=== PATIENT | male | born 1980 | race Hispanic/Latino ===

== ENCOUNTER 2019-03-14 18:24 | Observation (INO) | payer OTHER ==
[~2019-03-14] VITALS: Ht 170.2 cm; Wt 81.0 kg
[~2019-03-14 18:24] MED LIST: ACIPHEX20 MG PO; AVIDOXY100 MG OR; BROVANA15 MCG IN; FLOVENT DISK100 MCG IN; FLOVENT HFA44 MCG IN; FLUOXETINE20 MG PO; HYDROXYZ HCL10 MG OR; IPRATROPIUM BROMIDE/ IN; METOCLOPRAMIDE H5 MG PO; NO CURRENT MEDS; OMEPRAZOLE20 M1 PO; OMEPRAZOLE20 MG PO; PRILOSEC10 MG PO; PRILOSEC20 MG/CAP PO; PRILOSEC40 MG PO; PROAIR HFA IN; RANITIDINE150 M1 OR; VENTOLIN HF1 IN; VENTOLIN HFA IN
[2019-03-14] MEDS ORDERED: LIPITOR10 M1 PO (18:55)
[2019-03-14 19:12] LABS: HEMATOCRIT 43.8 % (39.0-50.0); HEMOGLOBIN 14.8 g/dl (14.0-18.0); IMMATURE GRANULOCYTES 0.3 % (0.0-5.0); MEAN CELL VOLUME 87.6 fL CALC (80.0-100.0); MEAN CORPUSCULAR HGB 29.6 pG CALC (26.0-32.0); MEAN CORPUSCULAR HGB CONC 33.8 g/L CALC (32.0-36.0); NEUT# 4.36 thou/uL (1.82-7.42); RED CELL DISTRI WIDTH 12.9 % (11.5-15.5)
[2019-03-14 19:17] LABS: ALKALINE PHOSPHATASE 94 u/l (38-126); ANION GAP 17 (6-22 (CALC)); BILIRUBIN, TOTAL 0.6 mg/dL (0.0-1.4); BUN 18 mg/dL (9-20); BUN/CREATININE RATIO 20 (12-20 (CALC)); CARBON DIOXIDE 24 mmol/l (22-30); CHLORIDE 105 mmol/l (95-108); CREATININE 0.9 mg/dL (0.7-1.3); GFR > 60 ML/MIN (>=60 (CALC)); GFR FOR AFR.AMER. > 60 ML/MIN (>=60 (CALC)); LIPASE 66 u/l (23-300); POTASSIUM 4.2 mmol/l (3.5-5.1); SGOT/AST 23 u/l (17-59); SODIUM 142 mmol/l (137-146); TOTAL PROTEIN 8.1 g/dL (6.3-8.2)
[2019-03-14 19:30] LABS: MYOGLOBIN 15 ng/mL (0 - 121)
[2019-03-14 20:54] LABS: URINE BILIRUBIN - DIPSTICK NEGATIVE (NEGATIVE); URINE BLOOD DIPSTICK NEGATIVE (NEGATIVE); URINE COLOR YELLOW; URINE GLUCOSE - DIPSTICK NEGATIVE (NEGATIVE); URINE KETONE NEGATIVE (NEGATIVE); URINE LEUK ESTERASE NEGATIVE (NEGATIVE); URINE NITRITE - DIPSTICK NEGATIVE (Negative); URINE PH 6.5 (4.5-8.0); URINE PROTEIN - DIPSTICK NEGATIVE (NEG-TRACE); URINE SPECIFIC GRAVITY 1.015
[2019-03-14 21:28] VITALS: BP 133/76
[2019-03-15 04:22] VITALS: BP 114/61
[2019-03-15 08:06] VITALS: BP 125/80
[2019-03-15 10:04] LABS: CHOLESTEROL HDL RATIO 3.8 (<4.4 (CALC))
[2019-03-15 11:04] VITALS: BP 104/60
== END 2019-03-15 13:25 | disposition home or self-care (01) | DRG 313 ==
LOC: ED 18:24 → ED-I 20:13 → MS2 20:41 → ED 20:41 → MS2 03-15 13:25
PROVIDERS: Nurse Practitioner Family; ADMIT Internal Medicine; ATTEND Internal Medicine
DX: R07.9 Chest pain, unspecified (principal); K21.9 Gastro-esophageal reflux disease without esophagitis; E78.5 Hyperlipidemia, unspecified
CPT/HCPCS: G0378